=== PATIENT | male | born 1970 | race Caucasian/White ===

== ENCOUNTER 2016-08-02 09:23 | Inpatient (IN) | payer OTHER ==
[~2016-08-02] VITALS: Ht 182.9 cm; Wt 97.0 kg
[2016-08-02] VITALS (31 sets, daily range): BP systolic 93–145; BP diastolic 43–78; PULSE 56–96; RESP 10–22; BMI 29.1
[~2016-08-02 09:23] MED LIST: CEFAZOLIN 1 GM INJ ONE
[2016-08-02] MEDS ORDERED: CEFAZOLIN 2 GM/50 ML (PMX) 50 ML IVPB ONE (10:30)
[2016-08-02] MEDS ORDERED: LACTATED RINGER'S 1,000 ML IV* SCH (10:30)
[2016-08-02] MEDS: D5W-0.45 NACL + KCL 20 MEQ 1,000 ML IV SCH ×2 (11:37→20:58)
--- NOTE | 2016-08-02 11:37 | HPN ---
Date/Time of Note Date/Time of Note DATE: 08/02/16 TIME: 11:36 Interval H&P Admission Note Pt. seen H&P reviewed: No system changes SHANEKA BOLIVAR PA-C Aug 02, 2016 11:37
[2016-08-02] MEDS ORDERED: POLYMYXIN/BACITRACIN 1L IRRIG ONE (11:58)
[2016-08-02] MEDS ORDERED: BISACODYL 10 MG SUPP PR PRN (12:00)
[2016-08-02] MEDS ORDERED: NALOXONE (0.4 MG/ML) INJ IV PRN (12:00)
[2016-08-02] MEDS ORDERED: AL HYDROX/MG HYDROX/SIMETH 30 ML CUP PO PRN (12:00)
[2016-08-02] MEDS ORDERED: HYDROmorphONE 1 MG/ML SYG IV PRN (12:00)
[2016-08-02] MEDS ORDERED: GELATIN SIZE 100 SPONGE ONE (12:00)
[2016-08-02] MEDS ORDERED: ZOLPIDEM 5 MG TAB PO PRN (12:00)
[2016-08-02] MEDS ORDERED: CEPASTAT LOZENGE MT PRN (12:00)
[2016-08-02] MEDS ORDERED: DIPHENHYDRAMINE 50 MG INJ IV PRN ×2 (12:00→13:30)
[2016-08-02] MEDS ORDERED: SURGIFOAM POWDER 1 GM KIT ONE (12:00)
[2016-08-02] MEDS ORDERED: ACETAMINOPHEN 325 MG TAB PO PRN (12:00)
[2016-08-02] MEDS ORDERED: BUPIVACAINE 0.25% (MPF) 30 ML INJ ONE (12:01)
[2016-08-02] MEDS ORDERED: HEPARIN 1000 UNITS/ML 10 ML INJ ONE (12:01)
[2016-08-02] MEDS ORDERED: THROMBIN 5000 UNIT VIAL ONE ×2 (12:01→14:52)
[2016-08-02] MEDS ORDERED: BUPIVACAINE 0.25%/EPI (SDV) 30 ML INJ ONE ×2 (12:01→13:05)
[2016-08-02] MEDS ORDERED: CEFAZOLIN 1 GM INJ ONE (12:10)
[2016-08-02] MEDS ORDERED: ROCURONIUM 50 MG INJ ONE (12:17)
[2016-08-02] MEDS ORDERED: DEXAMETHASONE 4 MG/ML 1 ML INJ ONE (12:17)
[2016-08-02] MEDS ORDERED: MIDAZOLAM 1 MG/ML 2 ML INJ ONE (12:17)
[2016-08-02] MEDS ORDERED: LIDOCAINE 100 MG SYRINGE ONE (12:17)
[2016-08-02] MEDS ORDERED: PROPOFOL 20 ML ONE (12:17)
[2016-08-02] MEDS ORDERED: NEOSTIGMINE 3 MG/3 ML SYRINGE ONE (12:17)
[2016-08-02] MEDS ORDERED: ONDANSETRON 4 MG INJ ONE (12:17)
[2016-08-02] MEDS ORDERED: GLYCOPYRROLATE 1 MG INJ ONE (12:17)
[2016-08-02] MEDS: CEFAZOLIN 1 GM/50 ML (PMX) 50 ML IVPB SCH ×2 (12:44→19:44)
[2016-08-02] MEDS ORDERED: CA CHLORIDE 10% 10 ML SYRINGE ONE (13:05)
[2016-08-02] MEDS ORDERED: HYDROmorphONE (0.2 MG/ML) 10ML SYG IV PRN ×3 (13:30)
[2016-08-02] MEDS ORDERED: MEPERIDINE 25 MG INJ IV PRN (13:30)
[2016-08-02] MEDS ORDERED: LABETALOL HCL 20MG INJ IV PRN (13:30)
[2016-08-02] MEDS ORDERED: hydrALAzine 20 MG INJ IV PRN (13:30)
[2016-08-02] MEDS ORDERED: FENTAnyl 50 MCG/ML VIAL IV PRN ×2 (13:30)
[2016-08-02] MEDS ORDERED: EPHEDrine SULFATE 50 MG/5 ML SYG IV PRN (13:30)
[2016-08-02] MEDS ORDERED: ONDANSETRON 4 MG INJ IV PRN (13:30)
[2016-08-02] MEDS ORDERED: MIDAZOLAM 1 MG/ML 2 ML INJ IV PRN (13:30)
[2016-08-02] MEDS ORDERED: TRIMETHOBENZAMIDE 100 MG/ML VIAL IM PRN (13:30)
[2016-08-02] MEDS ORDERED: FENTAnyl 50 MCG/ML VIAL ONE (14:36)
[2016-08-02] MEDS: FENTAnyl 50 MCG/ML VIAL IV PRN ×2 (16:20→16:30)
[2016-08-02] MEDS: HYDROmorphONE 0.2 MG/ML PCA IV SCH (16:34)
[2016-08-02] MEDS ORDERED: METOCLOPRAMIDE 10 MG INJ ONE (17:21)
[2016-08-02] MEDS ORDERED: METOCLOPRAMIDE 10 MG INJ IV ONE (17:30)
--- NOTE | 2016-08-02 17:30 | OPR ---
DATE OF OPERATION: 08/02/2016 PREOPERATIVE DIAGNOSIS: Unstable degenerative spondylolisthesis and stenosis at L4-5 with radiculop athy. POSTOPERATIVE DIAGNOSES: Unstable degenerative spondylolisthesis and stenosis at L4-5 with radiculo tracey. OPERATION PERFORMED 1. Left L4-5 decompression with decompression of L4 and L5 nerve roots for stenosis. 2. Pedicle screw placement at L4 and L5 bilaterally. 3. Transforaminal lumbar interbody fusion at L4-5. 4. Placement of intervertebral biomechanical device at L4-L5. 5. Posterolateral fusion at L4-L5. 6. Right iliac crest bone marrow aspiration. 7. Use of allograft. 8. Use of autograft. 9. Use of C-arm fluoroscopy with interpretation without radiologist present. 10. Intraoperative neuromonitoring (2 hours 45 minutes). 12. Epidural injection via catheter. IMPLANTS: 1. RERE Modera pedicle screws, 6.5 x 50 x 4 mm. 2. RERE 45 mm rikki on the left and 40 mm rikki on the right. 3. [place] TLIF interbody 8 mm cage. 4. Fibergraft. PRIMARY SURGEON: Daniel Montez MD MIRROR FABRICATION SUPERVISOR: ECHO PORTER. NEED FOR NURSING CONSULTANT: During this spinal surgical procedure, my benefits assistant was used to retrac t and protect the spinal nerves and dural sac. My benefits assistant also employed the suction catheters to evacuate blood from the surgical field to improve visualization of the neural structures. The kirk tant was medically necessary to facilitate the completion of the surgery in a safe and expeditious m richard. [facility] [place] regulations, as well as hospital bylaws, preclude the use of non-license d health care personnel, such as operating room technicians, to perform these functions. FINDINGS: Neuromonitoring at the start of the case revealed bilateral L5 amplitude down 40%. At th e end of the case, nerve signals returned to normal. Patient had an unstable listhesis at L4-L5 wit h stenosis. ESTIMATED BLOOD LOSS: 200 mL. SPECIMENS: L4-5 disk was sent to Pathology. COMPLICATIONS OF PROCEDURES: None. ANESTHESIOLOGIST: Jimbo Mario MD. TYPE OF ANESTHESIA: General. INDICATIONS FOR PROCEDURE: This is a 45-year-old gentleman with lumbosacral radiculopathy in the se tting of an unstable listhesis at L4-L5. He had failed nonoperative measures, therefore, I recommen ded proceeding with the above-mentioned surgery. Preoperatively, we discussed the risks, benefits a nd alternatives. He understood and wished to proceed. DESCRIPTION OF PROCEDURE IN DETAIL: The patient was identified in the preoperative holding area, joanna narvaez, taken to the operating room, where he was successfully placed under general an esthesia by Dr. Mario. Neuromonitoring leads were placed, sequential compressive devices were a pplied. Rodriguez catheter was introduced. Neuromonitoring was utilized during the procedure for 2 alem rs and 45 minutes to include SSEP, MEP, and EMG. This was performed by [employer] Start alina e was 1 p.m., closure time was 3:45 p.m. The patient was placed on table in prone position over a W ilson frame. All bony prominences were well padded. The back was then prepped, draped in usual bhargavi rile fashion. Using the C-arm fluoroscope, I identified the incision site. I anesthetized skin, blum bcutaneous tissue, and paraspinal musculature with 0.25% Marcaine and epinephrine. Incision was the n made over the L4-5 level. Incision was taken down to dorsal fascia, which was incised with Bovie cautery. I then subperiosteally dissected the paraspinal musculature. I dissected out the L4-L5 la rajni out to the transverse processes. I then took imaging studies to confirm the correct levels. N ext, I performed a right iliac crest bone marrow aspiration and the blood was spun down using the Silentiumlan device. Next, I placed the appropriate size pedicle screws at L4 and L5 bilaterally. I plac ed the tulips and made sure that there were engaged. Microscope was then brought in and a left-side d decompression was performed at the L4-5 level. This decompression was done in order to alleviate the stenosis and beyond what was required for an interbody fusion. I decompressed the left L4 and L 5 nerve roots and decompressed the canal by removing ligamentum flavum. I then identified the annul us. My benefits assistant retracted the neural elements medially. I made an annulotomy followed by radical diskectomy. I then placed various trials and chose the appropriate graft height. I then took the P SPOKANE cage, within which I placed allograft and I impacted the intervertebral biomechanical device int o the L4-5 level to complete the transforaminal lumbar interbody fusion at this level. By performin g the facetectomy, I was also able to help reduce the listhesis and Juan frame was let down. I s timulated each of the screws and there was no evidence of cortical breach. The wound was then copio usly irrigated. I then burred the lamina on the right and transverse processes. On the right side, I took a mixture of autograft and allograft on the left side to make a mixture of allograft and I p erformed a posterolateral fusion as well as fusion over the right side lamina of L4 and L5. Prior t o this, I irrigated the wound copiously. The autograft was taken from the local lamina. Microscope was off the field at this point. I placed the appropriate size rods bilaterally with compression a cross the set screws and tightened the set screws per manufacture's specifications. I then passed a n epidural catheter through which I injected 100 mcg of fentanyl mixed with 2 mL of Marcaine 0.425% preservative-free and the catheter was pulled. I took the platelet-poor plasma and mixed this with thrombin and injected this over the dura for hemostatic purposes. I placed a deep subfascial drain and closed the deep fascia with #1 Stratafix suture. I then closed subcutaneous tissue with a 2-0 Vicryl stitch, followed by 4-0 Monocryl closure, taking care to realign the posterior tattoo. Gilboa pearson and sterile dressings were then applied. The patient was then awakened from anesthesia and jeremiah en to recovery room in stable condition. Lap, sponge, and instrument counts were correct x2. There were no apparent complications during the procedure. The patient will be admitted to the orthopedic [facility] for routine postoperative care to include pain c ontrol, neurovascular checks, antibiotics and physical therapy. Dictated By: DANIEL CASEY/OCTAVIO Conf#: [id number] DID#: [id number]
--- NOTE | 2016-08-02 18:04 | CONS ---
Date/Time of Note Date/Time of Note DATE: 08/02/16 TIME: 17:54 Assessment/Plan Assessment/Plan Problems: (1) Spinal stenosis of lumbar region Status: Chronic Comment: Defer to primary team. Hopefully effect of surgery relieves this. (2) Spondylolisthesis at L4-L5 level Status: Resolved Comment: This should be resolved with the spinal fusion at L4-L5 (3) Nontoxic diffuse goiter Status: Chronic Comment: thyroid ultrasound while in hospital (4) Aftercare following surgery of the musculoskeletal system Status: Acute Comment: Doing well post-op day 0. Low risk of medical complications given normal pre-op eval. Will follow and monitor for any medical issues post- operatively. Consultation Date/Type/Reason Admit Date/Time Aug 02, 2016 at 09:23 Date of Consultation: Aug 02, 2016 Type of Consultation: Medicine Reason for Consultation Medical Management Referring Provider: RYLEY ARGUETA MD Hx of Present Illness Pt. is 45 y/o H M w/ h/o multiple work-related orthopedic issues. Over the last over 10 years has been experiencing increasing amount of low back pain. Hurts w/ standing or sitting too long. Even hurts when he rises from sleep. Hurts w/ bending over. PT and epidurals have been effective. MRI indicative of spinal stenosis and spondylolisthesis. Pt. today had lumbar decomp and fusion of L4-L5. Constitutional: no complaints Eyes: no complaints ENT: no complaints Respiratory: no complaints Cardiovascular: no complaints Gastrointestinal: no complaints Genitourinary: no complaints Musculoskeletal: no complaints Neurologic: no complaints Past Medical History Medical History: no pertinent history Past Surgical History Past Surgical Hx: other (shoulder arthroscopy, carpal tunnel, B elbow tendon and nerve surgeries) Family History Significant Family History: no pertinent family hx Social History b. 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[employer], mostly undercover narcotics, , 5 children Alcohol Use: none Smoking Status: Never smoker Drug Use: none Exam/Review of Systems Vital Signs Vitals Vital Signs Date Time Temp Pulse Resp B/P Pulse Ox O2 Delivery O2 Flow Rate FiO2 08/02/16 17:10 80 15 102/47 100 Nasal Cannula 08/02/16 16:52 2.0 08/02/16 16:12 98.7 Exam Constitutional: alert, oriented, well developed Psych: nl mood/affect, no complaints Eyes: EOMI, PERRL, nl conjunctiva, nl lids, nl sclera ENMT: mucosa pink and moist, nl external ears & nose Neck: non-tender, supple, No bruits, No masses, No thyromegaly Respiratory: clear to auscultation, normal air movement Cardiovascular: nl pulses, regular rate and rhythm, No edema, No murmurs/extra sounds, No rub Gastrointestinal: nl liver, spleen, non-tender, soft Musculoskeletal: nl extremities to inspection Extremities: normal pulses, No clubbing, No cyanosis, No edema Neurological: TUBERCULOSIS SPECIALIST II-XII intact, nl mental status, nl speech, nl strength Medications Medications Current Medications Potassium Chloride/Dextrose/ Sod Cl (D5-1/2ns + KCl 20 Meq) 1,000 ml @ 100 mls/ hr Q10H IV ; Start 08/02/16 at 11:37 Oxycodone/ Acetaminophen (Endocet (10/ 325)) 1 tab Q4H PRN PO PAIN LEVEL 1-5; Start 08/04/16 at 13:00 Oxycodone/ Acetaminophen (Endocet (10/ 325)) 2 tab Q4H PRN PO PAIN LEVEL 6-10; Start 08/04/16 at 13:00 Hydromorphone HCl 0.2 mg 0.2 mg Q1H PRN IV BREAKTHROUGH PAIN; Start 08/02/16 at 12:00 Cefazolin Sodium (Ancef 1 Gm/50 ml (Pmx)) 50 ml @ 100 mls/hr Q8H IVPB ; Start 08/02/16 at 12:00; Stop 08/03/16 at 04:29 Ondansetron HCl (Zofran Inj) 4 mg Q6H PRN IV NAUSEA AND/OR VOMITING; Start 08/02 at 12:00 Bisacodyl (Dulcolax Supp) 10 mg DAILY PRN [place] CONSTIPATION; Start 08/02/16 at 12: 00 Docusate Sodium (Colace) 100 mg BID PO ; Start 08/02/16 at 21:00 Pantoprazole (Protonix Iv) 40 mg DAILY@06 IV ; Start 08/03/16 at 06:00 Al Hydrox/Mg Hydrox/Simethicone (Mag-Al Plus) 15 ml Q6H PRN PO CONSTIPATION/ DYSPEPSIA; Start 08/02/16 at 12:00 Acetaminophen (Tylenol Tab) 650 mg Q4H PRN PO CIFUENTES OR TEMP GREATER THAN 101.3F; Start 08/02/16 at 12:00 Carisoprodol (Soma) 350 mg TID PRN PO MUSCLE SPASMS; Start 08/02/16 at 12:00 Phenol (Cepastat Lozenge) 1 lozenge PRN PRN [place] SORE THROAT; Start 08/02/16 at 12 :00 Diphenhydramine HCl (Benadryl) 25 mg Q6H PRN IV ITCHING; Start 08/02/16 at 12:00 Naloxone HCl (Narcan) 0.2 mg Q2M PRN IV RR 8 BREATHS/MIN OR LESS; Start at 12:00 Hydromorphone HCl (Dilaudid [employer]) [employer] to be started in PACU Q4PCA IV Last administered on 08/02/16t 16:34; Admin Dose 6 MG; Start 08/02/16 at 12:00; Stop at 10:00 Miscellaneous Information 1. Hold [employer] at 1,000... [employer] IV ; Start 08/02/16 at 12: 00 Oxycodone/ Acetaminophen (Endocet (10/ 325)) 2 tab ONCE ONCE PO ; Start at 09:30; Stop 08/04/16 at 09:31 JOHN DELGADILLO MD Aug 02, 2016 18:04
--- NOTE | 2016-08-02 18:09 | RADRPT ---
PROCEDURE: Intraoperative fluoroscopy. CLINICAL INDICATION: Intraoperative fluoroscopy during L4-5 fusion. TECHNIQUE: Multiple spot intraoperative fluoroscopic images were provided. The images were review ed on a high-resolution PACS workstation. COMPARISON: None available FINDINGS: Multiple spot intraoperative fluoroscopic views were provided during L4-5 fusion. The images demons trate placement of bilateral pedicle screws in the L4 and L5 vertebral bodies with associated parasp inal fusion rods and disc spacer. The hardware appears in satisfactory alignment. The total fluoros copy time was 78.9 seconds. IMPRESSION: 1. Multiple spot intraoperative fluoroscopic views during L4-5 fusion were provided. 2. Please see operative report of the same day for further information. RPTAT: HGAS .Thong Cobb MD, Date Time Electronically viewed and signed by .Thong Cobb MD, on 08/02/2016 18:08 .S/
[2016-08-02] MEDS: ONDANSETRON 4 MG INJ IV PRN (20:54)
[2016-08-02] MEDS: CARISOPRODOL 350 MG TAB PO PRN (20:55)
[2016-08-02] MEDS: DOCUSATE SODIUM 100 MG CAP PO SCH (20:55)
[2016-08-03] MEDS: CEFAZOLIN 1 GM/50 ML (PMX) 50 ML IVPB SCH (04:15)
[2016-08-03] MEDS: PANTOPRAZOLE 40 MG INJ IV SCH (05:11)
[2016-08-03 05:47] LABS: POTASSIUM 3.8 mmol/L (3.5-5.1)
[2016-08-03 05:50] LABS: CREATININE 0.78 mg/dl (0.61-1.24)
[2016-08-03 05:51] LABS: CALCIUM 8.6 mg/dl (8.4-10.2); MAGNESIUM 1.9 mg/dl (1.7-2.5)
[2016-08-03 05:52] LABS: BASOPHILS % 0.2 % (0.0-2.0); EOSINOPHILS % 0.1 % (0.0-7.0); HEMATOCRIT 35.1 % (42.0-52.0); HEMOGLOBIN 12.2 g/dl (14.0-18.0); LYMPHOCYTES # 1.4 10^3/ul (0.8-2.9); LYMPHOCYTES % 11.6 % (15.0-51.0); MEAN CORPUSCULAR HEMOGLOBIN 30.7 pg (29.0-33.0); MEAN CORPUSCULAR HGB CONC 34.7 g/dl (32.0-37.0); MEAN CORPUSCULAR VOLUME 88.5 fl (82.0-101.0); MEAN PLATELET VOLUME 8.1 fl (7.4-10.4); MONOCYTE # 0.7 10^3/ul (0.3-0.9); MONOCYTES % 6.2 % (0.0-11.0); NEUTROPHIL # 9.6 10^3/ul (1.6-7.5); NEUTROPHILS % 81.9 % (39.0-77.0); PLATELET COUNT 204 10^3/UL (140-440); RED BLOOD COUNT 3.96 10^6/ul (4.70-6.10); UNCORRECTED WBC 11.7 10^3/ul (4.8-10.8); WHITE BLOOD COUNT 11.7 10^3/ul (4.8-10.8)
[2016-08-03 06:56] LABS: CONDITION 1
--- NOTE | 2016-08-03 06:56 | PN ---
Date/Time of Note Date/Time of Note DATE: 08/03/16 TIME: 06:55 Assessment/Plan Lines/Catheters IV Catheter Type (from Nrsg): Peripheral IV Rodriguez in Place (from Nrsg): Yes Assessment/Plan Assessment/Plan Status post lumbar fusion Continue with pain control and physical therapy. Continue with the drain. Subjective 24 Hr Interval Summary Complains of pain. Exam/Review of Systems Vital Signs Vitals Vital Signs Date Time Temp Pulse Resp B/P Pulse Ox O2 Delivery O2 Flow Rate FiO2 08/03/16 05:17 17 08/02/16 23:05 59 99/56 99 Nasal Cannula 1.0 08/02/16 22:35 98.4 Intake and Output 08/02/16 08/02/16 08/03/16 15:00 23:00 07:00 Intake Total 2700 ml 50 ml 770 ml Output Total 560 ml 2620 ml Balance 2700 ml -510 ml -1850 ml Exam Free Text/Dictation Neurovascularly intact. Results Result Diagram: 08/03/16 0445 RYLEY ARGUETA MD Aug 03, 2016 06:56
[2016-08-03] MEDS: D5W-0.45 NACL + KCL 20 MEQ 1,000 ML IV SCH ×2 (06:57→18:29)
[2016-08-03 07:30] VITALS: BP 112/66; RESP 14
[2016-08-03] MEDS: DOCUSATE SODIUM 100 MG CAP PO SCH ×2 (08:57→20:17)
[2016-08-03] MEDS: CARISOPRODOL 350 MG TAB PO PRN ×3 (09:12→23:55)
--- NOTE | 2016-08-03 13:42 | RADRPT ---
PROCEDURE: US Thyroid. CLINICAL INDICATION: Thyromegaly on physical exam TECHNIQUE: Multiple sonographic images of the thyroid were obtained. Transverse and sagittal imagi ng of the gland and nunu-thyroidal tissues was performed with a high frequency linear array transduc er. Color interrogation was performed as well. The images were reviewed on a PACS workstation. COMPARISON: No prior studies are available for comparison. FINDINGS: The thyroid gland is normal in shape, size and echogenicity. The right lobe of the thyroid gland megan sures 4.7 x 1.6 x 1.5 cm. The left lobe of the thyroid gland measures 4.4 x 1.4 x 1.7 cm. The isth mus is of normal thickness. No thyroid nodule or mass lesion is seen. IMPRESSION: 1. Unremarkable thyroid ultrasound. No thyroid mass or nodule is identified. RPTAT: QQ .Derrick Arriaza MD, Date Time Electronically viewed and signed by .Derrick Arriaza MD, on 08/03/2016 13:41 .R/
[2016-08-03] MEDS: ONDANSETRON 4 MG INJ IV PRN (16:08)
[2016-08-03 19:40] VITALS: BP 107/57; RESP 18
--- NOTE | 2016-08-03 19:55 | CONS ---
Date/Time of Note Date/Time of Note DATE: 08/03/16 TIME: 19:51 Assessment/Plan Assessment/Plan Problems: (1) Aftercare following surgery of the musculoskeletal system Status: Acute Comment: POD#1 following lumbar decomp and fusion. Pt. remains in significant pain which limits movement. Controlled w/ narcotics but appears to be slowly progressing. Of note goiter felt on original physical proven false by ultrasound. No goiter exists. Consultation Date/Type/Reason Admit Date/Time Aug 02, 2016 at 09:23 Initial Consult Date 08/02/16 Type of Consultation: Medicine Reason for Consultation Medical management Referring Provider: RYLEY ARGUETA MD 24 HR Interval Summary Constitutional: no complaints Detailed Summary Respiratory: no complaints Cardiovascular: no complaints Gastrointestinal: no complaints Genitourinary: no complaints Musculoskeletal: back pain (difficult to lie on back, difficult to ambulate w/ PT), restricted range of motion (feels can only walk a few steps this afternoon due to limited by pain) Neurologic: no complaints Exam/Review of Systems Vital Signs Vitals VS - Last 72 Hours, by Label Date Time Temp Pulse Resp B/P Pulse Ox O2 Delivery O2 Flow Rate FiO2 08/03/16 19:40 99.7 89 18 107/57 95 08/03/16 16:00 16 08/03/16 12:00 18 08/03/16 09:00 16 08/03/16 07:30 98.5 80 14 112/66 98 08/03/16 05:17 17 08/03/16 01:00 18 08/02/16 23:05 59 18 99/56 99 Nasal Cannula 1.0 08/02/16 22:35 98.4 59 17 101/55 98 Nasal Cannula 1.0 08/02/16 22:05 59 17 113/66 100 Nasal Cannula 1.0 08/02/16 21:35 60 16 129/78 97 Nasal Cannula 1.0 08/02/16 21:05 98.6 76 19 125/77 98 Nasal Cannula 2.0 08/02/16 20:50 67 18 105/56 100 Nasal Cannula 2.0 08/02/16 20:43 Nasal Cannula 2.0 08/02/16 20:43 18 08/02/16 20:35 96 18 109/76 99 Nasal Cannula 2.0 08/02/16 20:20 98.5 91 16 107/56 100 08/02/16 19:44 60 10 98/54 98 Room Air 08/02/16 19:30 58 10 96/55 94 Room Air 08/02/16 19:00 56 11 97/52 99 Room Air 08/02/16 18:30 58 10 103/57 100 Room Air 08/02/16 18:10 56 11 106/56 100 Room Air 08/02/16 17:50 60 10 111/55 100 Room Air 08/02/16 17:30 62 10 101/55 100 Room Air 08/02/16 17:10 80 15 102/47 100 Nasal Cannula 08/02/16 17:05 76 11 100/56 100 Nasal Cannula 08/02/16 17:00 68 10 105/56 100 Nasal Cannula 08/02/16 16:55 74 11 116/61 100 Nasal Cannula 08/02/16 16:52 Nasal Cannula 2.0 08/02/16 16:50 70 11 106/58 100 Nasal Cannula 08/02/16 16:45 70 11 111/58 100 Nasal Cannula 08/02/16 16:40 68 12 106/56 100 Nasal Cannula 08/02/16 16:35 86 22 109/56 100 Nasal Cannula 08/02/16 16:34 11 08/02/16 16:30 72 12 97/48 100 Nasal Cannula 08/02/16 16:25 92 22 93/45 100 Nasal Cannula 08/02/16 16:20 72 13 106/55 100 Nasal Cannula 08/02/16 16:15 78 18 102/43 97 Nasal Cannula 08/02/16 16:12 98.7 08/02/16 16:10 66 11 102/53 100 Nasal Cannula 08/02/16 16:05 98.7 74 18 145/58 100 Nasal Cannula 08/02/16 10:51 97.6 66 18 122/76 100 Vital Signs Date Time Temp Pulse Resp B/P Pulse Ox O2 Delivery O2 Flow Rate FiO2 08/03/16 19:40 99.7 89 18 107/57 95 08/02/16 23:05 Nasal Cannula 1.0 Intake and Output 08/02/16 08/02/16 08/03/16 15:00 23:00 07:00 Intake Total 2700 ml 50 ml 1920 ml Output Total 560 ml 2620 ml Balance 2700 ml -510 ml -700 ml Exam Constitutional: alert, oriented, well developed Psych: nl mood/affect, no complaints Respiratory: clear to auscultation, normal air movement Cardiovascular: nl pulses, regular rate and rhythm, No edema, No murmurs/extra sounds, No rub Gastrointestinal: bowel sounds, nl liver, spleen, non-tender, soft, No mass, No rebound or guarding Musculoskeletal: nl extremities to inspection Extremities: normal pulses, No clubbing, No cyanosis, No edema Neurological: COMBINER II-XII intact, nl mental status, nl speech, nl strength Results Result Diagram: 08/03/1644408/03/16444 Results 24 hrs Laboratory Tests Test 08/03/16 04:45 Anion Gap 14 Basophils # 0.0 Basophils % 0.2 Blood Urea Nitrogen 10 Calcium Level 8.6 Carbon Dioxide Level 26 Chloride Level 106 Creatinine 0.78 Eosinophils # 0.0 Eosinophils % 0.1 Glucose Level 110 Hematocrit 35.1 L Hemoglobin 12.2 L Lymphocytes # 1.4 Lymphocytes % 11.6 L Magnesium Level 1.9 Mean Corpuscular Hemoglobin 30.7 Mean Corpuscular Hemoglobin Concent 34.7 Mean Corpuscular Volume 88.5 Mean Platelet Volume 8.1 Monocytes # 0.7 Monocytes % 6.2 Neutrophils # 9.6 H Neutrophils % 81.9 H Nucleated Red Blood Cells # 0.0 Nucleated Red Blood Cells % 0.0 Platelet Count 204 Potassium Level 3.8 Red Blood Count 3.96 L Red Cell Distribution Width 13.0 Sodium Level 142 White Blood Count 11.7 H Medications Medications Current Medications Potassium Chloride/Dextrose/ Sod Cl (D5-1/2ns + KCl 20 Meq) 1,000 ml @ 100 mls/ hr Q10H IV Last administered on 08/03/16t 18:29; Admin Dose 100 MLS/HR; Start at 11:37 Oxycodone/ Acetaminophen (Endocet (10/ 325)) 1 tab Q4H PRN PO PAIN LEVEL 1-5; Start 08/04/16 at 13:00 Oxycodone/ Acetaminophen (Endocet (10/ 325)) 2 tab Q4H PRN PO PAIN LEVEL 6-10; Start 08/04/16 at 13:00 Hydromorphone HCl (Dilaudid) 0.2 mg Q1H PRN IV BREAKTHROUGH PAIN; Start at 12:00 Ondansetron HCl (Zofran Inj) 4 mg Q6H PRN IV NAUSEA AND/OR VOMITING Last administered on 08/03/16 16:08; Admin Dose 4 MG; Start 08/02/16 at 12:00 Bisacodyl (Dulcolax Supp) 10 mg DAILY PRN [place] CONSTIPATION; Start 08/02/16 at 12: 00 Docusate Sodium (Colace) 100 mg BID PO Last administered on 08/03/16 08:57; Admin Dose 100 MG; Start 08/02/16 at 21:00 Pantoprazole (Protonix Iv) 40 mg DAILY@06 IV Last administered on 08/03/16 05: 11; Admin Dose 40 MG; Start 08/03/16 at 06:00 Al Hydrox/Mg Hydrox/Simethicone (Mag-Al Plus) 15 ml Q6H PRN PO CONSTIPATION/ DYSPEPSIA; Start 08/02/16 at 12:00 Acetaminophen (Tylenol Tab) 650 mg Q4H PRN PO CIFUENTES OR TEMP GREATER THAN 101.3F; Start 08/02/16 at 12:00 Carisoprodol (Soma) 350 mg TID PRN PO MUSCLE SPASMS Last administered on 13:08; Admin Dose 350 MG; Start 08/02/16 at 12:00 Phenol (Cepastat Lozenge) 1 lozenge PRN PRN [place] SORE THROAT Last administered on 08/03/16 05:10; Admin Dose 1 LOZENGE; Start 08/02/16 at 12:00 Diphenhydramine HCl (Benadryl) 25 mg Q6H PRN IV ITCHING; Start 08/02/16 at 12:00 Naloxone HCl (Narcan) 0.2 mg Q2M PRN IV RR 8 BREATHS/MIN OR LESS; Start at 12:00 Hydromorphone HCl (Dilaudid RETORT KILN BURNER) RETORT KILN BURNER to be started in PACU Q4PCA IV Last administered on 08/02/16 16:34; Admin Dose 6 MG; Start 08/02/16 at 12:00; Stop at 10:00 Miscellaneous Information 1. Hold RETORT KILN BURNER at 1,000... RETORT KILN BURNER IV ; Start 08/02/16 at 12: 00 Oxycodone/ Acetaminophen (Endocet ( 325)) 2 tab ONCE ONCE PO ; Start at 09:30; Stop 08/04/16 at 09:31 JOHN DELGADILLO MD Aug 03, 2016 19:55
[2016-08-03] MEDS: HYDROmorphONE 0.2 MG/ML PCA IV SCH (23:58)
[2016-08-04] MEDS: D5W-0.45 NACL + KCL 20 MEQ 1,000 ML IV SCH ×4 (03:37→22:50)
[2016-08-04 05:26] LABS: POTASSIUM 3.6 mmol/L (3.5-5.1)
[2016-08-04 05:29] LABS: CREATININE 0.72 mg/dl (0.61-1.24)
[2016-08-04 05:30] LABS: CALCIUM 8.2 mg/dl (8.4-10.2); MAGNESIUM 1.8 mg/dl (1.7-2.5)
[2016-08-04] MEDS: ONDANSETRON 4 MG INJ IV PRN (05:38)
[2016-08-04] MEDS: PANTOPRAZOLE 40 MG INJ IV SCH (05:38)
[2016-08-04 05:45] LABS: BASOPHILS % 0.1 % (0.0-2.0); EOSINOPHILS % 0.2 % (0.0-7.0); HEMATOCRIT 35.3 % (42.0-52.0); HEMOGLOBIN 12.3 g/dl (14.0-18.0); LYMPHOCYTES # 1.7 10^3/ul (0.8-2.9); LYMPHOCYTES % 17.2 % (15.0-51.0); MEAN CORPUSCULAR HEMOGLOBIN 31.2 pg (29.0-33.0); MEAN CORPUSCULAR HGB CONC 34.8 g/dl (32.0-37.0); MEAN CORPUSCULAR VOLUME 89.8 fl (82.0-101.0); MEAN PLATELET VOLUME 7.9 fl (7.4-10.4); MONOCYTE # 0.9 10^3/ul (0.3-0.9); NEUTROPHIL # 7.5 10^3/ul (1.6-7.5); NEUTROPHILS % 73.5 % (39.0-77.0); PLATELET COUNT 178 10^3/UL (140-440); RED BLOOD COUNT 3.93 10^6/ul (4.70-6.10); RED CELL DISTRIBUTION WIDTH 12.9 % (11.5-14.5); UNCORRECTED WBC 10.1 10^3/ul (4.8-10.8); WHITE BLOOD COUNT 10.1 10^3/ul (4.8-10.8)
[2016-08-04 05:47] LABS: CONDITION 1
[2016-08-04 07:49] VITALS: BP 106/62; RESP 20
[2016-08-04] MEDS ORDERED: OXYCODONE/ACETAMINOPHEN (10/325) TAB PO ONE (09:30)
[2016-08-04] MEDS: DOCUSATE SODIUM 100 MG CAP PO SCH ×2 (09:31→21:49)
--- NOTE | 2016-08-04 12:28 | PN ---
Date/Time of Note Date/Time of Note DATE: 08/04/16 TIME: 12:27 Assessment/Plan Lines/Catheters IV Catheter Type (from Nrsg): Peripheral IV Quigley in Place (from Nrsg): Yes Assessment/Plan Assessment/Plan d/c inflated pad buffer and quigley and HV doing very well d/c planning for tomrrow Subjective 24 Hr Interval Summary c/o less pain Exam/Review of Systems Vital Signs Vitals Vital Signs Date Time Temp Pulse Resp B/P Pulse Ox O2 Delivery O2 Flow Rate FiO2 08/04/16 08:15 18 08/04/16 07:49 100.3 84 106/62 94 08/02/16 23:05 Nasal Cannula 1.0 Intake and Output 08/03/16 08/03/16 08/04/16 15:00 23:00 07:00 Intake Total 2660 ml 2000 ml Output Total 1870 ml 1140 ml Balance 790 ml 860 ml Exam Free Text/Dictation NVI Results Result Diagram: 08/04/16 0425 08/04/16 0425 RYLEY ARGUETA MD Aug 04, 2016 12:28
[2016-08-04] MEDS ORDERED: OXYCODONE/ACETAMINOPHEN (10/325) TAB PO PRN (13:00)
--- NOTE | 2016-08-04 14:07 | CONS ---
Date/Time of Note Date/Time of Note DATE: 08/04/16 TIME: 14:04 Assessment/Plan Assessment/Plan Problems: (1) Aftercare following surgery of the musculoskeletal system Status: Acute Comment: Doing well POD#2 w/ reduction in pain and improvement in ambulation. Primary team has d/c'ed [employer] LIBRARIAN and removed drain. PT reports pt. doing well. Low grade elevated temp this am but not high enough to necessitate investigation. Will monitor. Likely d/c tomorrow. Consultation Date/Type/Reason Admit Date/Time Aug 02, 2016 at 09:23 Initial Consult Date 08/02/16 Type of Consultation: Medicine Reason for Consultation Medical management Referring Provider: RYLEY ARGUETA MD 24 HR Interval Summary Constitutional: improved, no complaints Detailed Summary Respiratory: no complaints Cardiovascular: no complaints Gastrointestinal: no complaints Genitourinary: no complaints Musculoskeletal: back pain (much better), No restricted range of motion (improved ambulation today) Neurologic: no complaints Exam/Review of Systems Vital Signs Vitals VS - Last 72 Hours, by Label Date Time Temp Pulse Resp B/P Pulse Ox O2 Delivery O2 Flow Rate FiO2 08/04/16 08:15 18 08/04/16 07:49 100.3 84 20 106/62 94 08/04/16 05:41 17 08/04/16 01:00 17 08/03/16 21:00 17 08/03/16 19:40 99.7 89 18 107/57 95 08/03/16 16:00 16 08/03/16 12:00 18 08/03/16 09:00 16 08/03/16 07:30 98.5 80 14 112/66 98 08/03/16 05:17 17 08/03/16 01:00 18 08/02/16 23:05 59 18 99/56 99 Nasal Cannula 1.0 08/02/16 22:35 98.4 59 17 101/55 98 Nasal Cannula 1.0 08/02/16 22:05 59 17 113/66 100 Nasal Cannula 1.0 08/02/16 21:35 60 16 129/78 97 Nasal Cannula 1.0 08/02/16 21:05 98.6 76 19 125/77 98 Nasal Cannula 2.0 08/02/16 20:50 67 18 105/56 100 Nasal Cannula 2.0 08/02/16 20:43 Nasal Cannula 2.0 08/02/16 20:43 18 08/02/16 20:35 96 18 109/76 99 Nasal Cannula 2.0 08/02/16 20:20 98.5 91 16 107/56 100 08/02/16 19:44 60 10 98/54 98 Room Air 08/02/16 19:30 58 10 96/55 94 Room Air 08/02/16 19:00 56 11 97/52 99 Room Air 08/02/16 18:30 58 10 103/57 100 Room Air 08/02/16 18:10 56 11 106/56 100 Room Air 08/02/16 17:50 60 10 111/55 100 Room Air 08/02/16 17:30 62 10 101/55 100 Room Air 08/02/16 17:10 80 15 102/47 100 Nasal Cannula 08/02/16 17:05 76 11 100/56 100 Nasal Cannula 08/02/16 17:00 68 10 105/56 100 Nasal Cannula 08/02/16 16:55 74 11 116/61 100 Nasal Cannula 08/02/16 16:52 Nasal Cannula 2.0 08/02/16 16:50 70 11 106/58 100 Nasal Cannula 08/02/16 16:45 70 11 111/58 100 Nasal Cannula 08/02/16 16:40 68 12 106/56 100 Nasal Cannula 08/02/16 16:35 86 22 109/56 100 Nasal Cannula 08/02/16 16:34 11 08/02/16 16:30 72 12 97/48 100 Nasal Cannula 08/02/16 16:25 92 22 93/45 100 Nasal Cannula 08/02/16 16:20 72 13 106/55 100 Nasal Cannula 08/02/16 16:15 78 18 102/43 97 Nasal Cannula 08/02/16 16:12 98.7 08/02/16 16:10 66 11 102/53 100 Nasal Cannula 08/02/16 16:05 98.7 74 18 145/58 100 Nasal Cannula 08/02/16 10:51 97.6 66 18 122/76 100 Vital Signs Date Time Temp Pulse Resp B/P Pulse Ox O2 Delivery O2 Flow Rate FiO2 08/04/16 08:15 18 08/04/16 07:49 100.3 84 106/62 94 08/02/16 23:05 Nasal Cannula 1.0 Intake and Output 08/03/16 08/03/16 08/04/16 15:00 23:00 07:00 Intake Total 2660 ml 2000 ml Output Total 1870 ml 1140 ml Balance 790 ml 860 ml Exam Constitutional: alert, oriented, well developed Psych: nl mood/affect, no complaints Respiratory: clear to auscultation, normal air movement Cardiovascular: nl pulses, regular rate and rhythm, No edema, No murmurs/extra sounds, No rub Gastrointestinal: bowel sounds, nl liver, spleen, non-tender, soft, No mass, No rebound or guarding Musculoskeletal: nl extremities to inspection Extremities: normal pulses, No clubbing, No cyanosis, No edema Neurological: [employer] II-XII intact, nl mental status, nl speech, nl strength Results Result Diagram: 08/04/1642408/04/16424 Results 24 hrs Laboratory Tests Test 08/04/16 04:25 Anion Gap 13 Basophils # 0.0 Basophils % 0.1 Blood Urea Nitrogen 8 Calcium Level 8.2 L Carbon Dioxide Level 27 Chloride Level 103 Creatinine 0.72 Eosinophils # 0.0 Eosinophils % 0.2 Glucose Level 101 Hematocrit 35.3 L Hemoglobin 12.3 L Lymphocytes # 1.7 Lymphocytes % 17.2 Magnesium Level 1.8 Mean Corpuscular Hemoglobin 31.2 Mean Corpuscular Hemoglobin Concent 34.8 Mean Corpuscular Volume 89.8 Mean Platelet Volume 7.9 Monocytes # 0.9 Monocytes % 9.0 Neutrophils # 7.5 Neutrophils % 73.5 Nucleated Red Blood Cells # 0.0 Nucleated Red Blood Cells % 0.0 Platelet Count 178 Potassium Level 3.6 Red Blood Count 3.93 L Red Cell Distribution Width 12.9 Sodium Level 139 White Blood Count 10.1 Medications Medications Current Medications Potassium Chloride/Dextrose/ Sod Cl (D5-1/2ns + KCl 20 Meq) 1,000 ml @ 100 mls/ hr Q10H IV Last administered on 08/04/16t 05:39; Admin Dose 100 MLS/HR; Start at 11:37 Oxycodone/ Acetaminophen (Endocet (10/ 325)) 1 tab Q4H PRN PO PAIN LEVEL 1-5; Start 08/04/16 at 13:00 Oxycodone/ Acetaminophen (Endocet (10/ 325)) 2 tab Q4H PRN PO PAIN LEVEL 6-10; Start 08/04/16 at 13:00 Hydromorphone HCl (Dilaudid) 0.2 mg Q1H PRN IV BREAKTHROUGH PAIN; Start at 12:00 Ondansetron HCl (Zofran Inj) 4 mg Q6H PRN IV NAUSEA AND/OR VOMITING Last administered on 08/04/16 05:38; Admin Dose 4 MG; Start 08/02/16 at 12:00 Bisacodyl (Dulcolax Supp) 10 mg DAILY PRN [place] CONSTIPATION; Start 08/02/16 at 12: 00 Docusate Sodium (Colace) 100 mg BID PO Last administered on 08/04/16 09:31; Admin Dose 100 MG; Start 08/02/16 at 21:00 Pantoprazole (Protonix Iv) 40 mg DAILY@06 IV Last administered on 08/04/16 05: 38; Admin Dose 40 MG; Start 08/03/16 at 06:00 Al Hydrox/Mg Hydrox/Simethicone (Mag-Al Plus) 15 ml Q6H PRN PO CONSTIPATION/ DYSPEPSIA; Start 08/02/16 at 12:00 Acetaminophen (Tylenol Tab) 650 mg Q4H PRN PO CIFUENTES OR TEMP GREATER THAN 101.3F; Start 08/02/16 at 12:00 Carisoprodol (Soma) 350 mg TID PRN PO MUSCLE SPASMS Last administered on 23:55; Admin Dose 350 MG; Start 08/02/16 at 12:00 Phenol (Cepastat Lozenge) 1 lozenge PRN PRN [place] SORE THROAT Last administered on 08/03/16 05:10; Admin Dose 1 LOZENGE; Start 08/02/16 at 12:00 Diphenhydramine HCl (Benadryl) 25 mg Q6H PRN IV ITCHING; Start 08/02/16 at 12:00 Naloxone HCl (Narcan) 0.2 mg Q2M PRN IV RR 8 BREATHS/MIN OR LESS; Start at 12:00 Miscellaneous Information 1. Hold [employer]IAN at 1,000... [employer]IAN IV ; Start 08/02/16 at 12: 00 JOHN DELGADILLO MD Aug 04, 2016 14:07
[2016-08-04] MEDS: OXYCODONE/ACETAMINOPHEN (10/325) TAB PO PRN ×2 (14:10→21:52)
[2016-08-04 19:00] VITALS: BP 109/56; RESP 18
[2016-08-05 05:16] LABS: BASOPHILS % 0.3 % (0.0-2.0); EOSINOPHILS # 0.1 10^3/ul (0.0-0.5); EOSINOPHILS % 1.5 % (0.0-7.0); HEMATOCRIT 35.1 % (42.0-52.0); HEMOGLOBIN 12.1 g/dl (14.0-18.0); LYMPHOCYTES # 1.7 10^3/ul (0.8-2.9); LYMPHOCYTES % 19.4 % (15.0-51.0); MEAN CORPUSCULAR HGB CONC 34.6 g/dl (32.0-37.0); MEAN CORPUSCULAR VOLUME 89.8 fl (82.0-101.0); MEAN PLATELET VOLUME 7.8 fl (7.4-10.4); MONOCYTE # 0.6 10^3/ul (0.3-0.9); MONOCYTES % 7.5 % (0.0-11.0); NEUTROPHIL # 6.1 10^3/ul (1.6-7.5); NEUTROPHILS % 71.3 % (39.0-77.0); PLATELET COUNT 205 10^3/UL (140-440); RED CELL DISTRIBUTION WIDTH 12.9 % (11.5-14.5); UNCORRECTED WBC 8.6 10^3/ul (4.8-10.8); WHITE BLOOD COUNT 8.6 10^3/ul (4.8-10.8)
[2016-08-05] MEDS: PANTOPRAZOLE 40 MG INJ IV SCH (05:21)
[2016-08-05 05:40] LABS: CONDITION 1
[2016-08-05 05:42] LABS: POTASSIUM 3.4 mmol/L (3.5-5.1)
[2016-08-05 05:44] LABS: CREATININE 0.82 mg/dl (0.61-1.24)
[2016-08-05 05:45] LABS: CALCIUM 8.5 mg/dl (8.4-10.2); MAGNESIUM 1.9 mg/dl (1.7-2.5)
[2016-08-05 07:28] VITALS: BP 106/60; RESP 18
[2016-08-05] MEDS: DOCUSATE SODIUM 100 MG CAP PO SCH (08:14)
[2016-08-05] MEDS: D5W-0.45 NACL + KCL 20 MEQ 1,000 ML IV SCH (08:17)
[2016-08-05] MEDS: OXYCODONE/ACETAMINOPHEN (10/325) TAB PO PRN ×2 (08:37→13:38)
--- NOTE | 2016-08-05 14:34 | DS ---
DATE OF ADMISSION: 08/02/2016 DATE OF DISCHARGE: 08/05/2016 ADMITTING DIAGNOSIS: Unstable listhesis. FINAL DIAGNOSES: Unstable listhesis. PROCEDURE: Patient taken to the operating room and underwent lumbar fusion. HOSPITAL COURSE: Patient was admitted to [facility] after undergoing the above procedure. Pos toperative course was uncomplicated. By postoperative day 3, he was deemed stable for discharge wit h followup arranged with the undersigned. Dictated By: RYLEY CASEY/OCTAVIO Conf#: [id number] DID#: [id number]
[2016-08-06] MEDS ORDERED: PANTOPRAZOLE (EC) 40 MG TAB PO SCH (06:00)
== END 2016-08-05 18:00 | disposition home or self-care (01) | DRG 460 ==
LOC: REC 09:23 → MS1 20:20
PROVIDERS: ADMIT Specialist; ATTEND Specialist
PROC: 0ST20ZZ Resection of Lumbar Vertebral Disc, Open Approach (ICD-10-PCS; 2016-08-02)
PROC: 01NB0ZZ Release Lumbar Nerve, Open Approach (ICD-10-PCS; 2016-08-02)
PROC: 07DR3ZZ Extraction of Iliac Bone Marrow, Percutaneous Approach (ICD-10-PCS; 2016-08-02)
PROC: 4A11X4G Monitoring of Peripheral Nervous Electrical Activity, Intraoperative, External Approach (ICD-10-PCS; 2016-08-02)
PROC: 0SG00AJ Fusion of Lumbar Vertebral Joint with Interbody Fusion Device, Posterior Approach, Anterior Column, Open Approach (ICD-10-PCS; principal; 2016-08-02 12:00)
DX: M47.26 Other spondylosis with radiculopathy, lumbar region (principal); E04.0 Nontoxic diffuse goiter; M43.16 Spondylolisthesis, lumbar region
CPT/HCPCS: 72114; 76536; 80048; 83735; 85025; 86850; 86900; 86901; 86920; 86999; 87086; 97116; 97163; 97530; C1713; C9113; J0690; J1100; J1170; J1644; J2001; J2250; J2405; J2710; J2765; J3010; J3480